=== PATIENT | female | born 1940 | race Caucasian/White ===

== ENCOUNTER 2018-10-07 08:49 | Emergency (ER) | payer MEDICARE, BC, SELFPAY ==
[2018-10-07 08:49] VITALS: BP 135/56; PULSE 66; RESP 16; TEMP 36.9; O2SAT 100; BMI 23.0
[2018-10-07 09:00] VITALS: BP 135/56; PULSE 62
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
[2018-10-07 09:53] VITALS: BP 120/59; PULSE 63; RESP 15; O2SAT 100
[2018-10-07 10:00] VITALS: BP 109/46; PULSE 66; O2SAT 100
[2018-10-07] MEDS: ERYTHROMYCIN OPHTH 1 GM OINT 1 APPLIC EYE-BOTH (10:17)
--- NOTE | 2018-10-07 10:25 | PC.NURSE ---
left message for for ride home
== END 2018-10-07 10:37 | disposition home or self-care (01) ==
PROVIDERS: Emergency Provider Emergency Medicine; PCP Internal Medicine
DX: T24.211A Burn of second degree of right thigh, initial encounter (principal); T24.212A Burn of second degree of left thigh, initial encounter
CPT/HCPCS: 99283

== ENCOUNTER → 2018-11-30 09:13 | Outpatient (CLI) | payer MEDICARE, BC, SELFPAY ==
[2018-11-30 10:36] LABS: Add Manual Diff / Slide Review NO; Basophils Absolute Auto 0 /uL (0-100); Eosinophils Absolute Auto 400 /uL (0-450); Eosinophils Percent Auto 9.3 % (2-4); Hematocrit 41.6 % (36-46); Lymphocytes Absolute Auto 1700 /uL (1100-4500); Mean Corpuscular HGB Conc 33.7 % (30-36); Mean Corpuscular Hemoglobin 31.4 PG (26-34); Mean Corpuscular Volume 93.2 fL (80-100); Monocytes Absolute Auto 500 /uL (0-900); Monocytes Percent Auto 11.8 % (3-14); Neutrophils Absolute Auto 1300 /uL (1500-7000); Neutrophils Percent Auto 33.9 % (50-75); Platelet Count 288 X10^3/uL (150-400); Red Blood Cell Count 4.47 X10^6/uL (4.0-5.2); Red Cell Distribution Width 12.7 % (11.6-14.8); White Blood Cell Count 3.9 X10^3/uL (4.5-11.0)
[2018-11-30 10:54] LABS: BUN Creatinine Ratio 18.8 (6-22); Blood Urea Nitrogen 15 mg/dL (7-17); Calcium 10.5 mg/dL (8.4-10.2); Carbon Dioxide 30 mmol/L (22-32); Chloride 105 mmol/L (98-107); Cholesterol 226 mg/dL (140-199); Estimated Glomerular Filt Rate > 60.0 mL/min (>60); Glucose 88 mg/dL (80-110); HDL Cholesterol 65 mg/dL (40-60); HEMOLYSIS < 15 (0-50); LDL Cholesterol Calculated 147 mg/dL (<100); Sodium 143 mmol/L (137-145); Triglycerides 72 mg/dL (35-150)
[2018-11-30 11:08] LABS: Vitamin D 25 Hydroxy (D3) 38.4 ng/mL (30.0-100.0)
[2018-12-04 13:46] LABS: Parathyroid Hormone Int 58 pg/mL (14-64)
== END ==
PROVIDERS: PCP Internal Medicine; Visit Provider Internal Medicine
DX: M85.80 Other specified disorders of bone density and structure, unspecified site (principal); E78.5 Hyperlipidemia, unspecified; E21.3 Hyperparathyroidism, unspecified; D72.819 Decreased white blood cell count, unspecified
CPT/HCPCS: 36415; 80048; 80061; 82306; 83970; 85025

== ENCOUNTER → 2018-12-04 13:41 | Outpatient (CLI) | payer MEDICARE, BC, SELFPAY | PROVIDERS: PCP Internal Medicine; Visit Provider Internal Medicine | DX: M81.0 Age-related osteoporosis without current pathological fracture (principal); Z78.0 Asymptomatic menopausal state; Z82.62 Family history of osteoporosis | CPT/HCPCS: 77080 ==

== ENCOUNTER → 2019-01-01 16:55 | Outpatient (CLI) | payer MEDICARE, BC, SELFPAY ==
--- NOTE | 2019-01-01 16:58 | DI.MG.S_ITS ---
BILATERAL DIGITAL SCREENING MAMMOGRAM 3D/2D WITH CAD: 01/01/2019 CLINICAL: Routine screening. Comparison is made to exams dated: 04/13/2016 mammogram, 04/08/2015 mammogram - [facility], and 04/04/2012 mammogram - [facility]. The tissue of both breasts is heterogeneously dense. This may lower the sensitivity of mammography. Current study was also evaluated with a Computer Aided Detection (CAD) system. No significant masses, calcifications, or other findings are seen in either breast. There has been no significant interval change. IMPRESSION: NEGATIVE There is no mammographic evidence of malignancy. A 1 year screening mammogram is recommended. NOTE: For mammograms, a report in lay terms will be sent to the patient. Approximately 15% of breast malignancies will not be visualized mammographically. In the management of a palpable breast mass, a negative mammogram must not discourage biopsy of a clinically suspicious lesion. Electronically Signed By: Wong mcdonald/alexus:01/01/2019 18:06:57 letter sent: Normal Exam ACR BI-RADS Category 1: Negative 3341F
== END ==
PROVIDERS: PCP Internal Medicine; Visit Provider Internal Medicine
DX: Z12.31 Encounter for screening mammogram for malignant neoplasm of breast (principal)
CPT/HCPCS: 77063; 77067

== ENCOUNTER 2020-03-04 19:29 | Emergency (ER) | payer MEDICARE, BC, SELFPAY ==
[2020-03-04 19:33] VITALS: BP 134/63; PULSE 68; RESP 16; TEMP 36.2; O2SAT 99
[2020-03-04] MEDS: PROPARACAINE 0.5% OPHTH SOL 1 DROPS EYE-LEFT (20:39)
[2020-03-04] MEDS: FLUORESCEIN 1 MG STRIP EYE-LEFT (20:39)
--- NOTE | 2020-03-04 21:06 | ED.EYEPROB ---
HPI - Eye Problem <DAWSON Bowers - Last Filed: 03/04/20 21:27> General Chief complaint: Eye Problems Stated complaint: lt eye pain, swelling Time Seen by Provider: 03/04/20 20:23 Source: patient Mode of arrival: Ambulatory Limitations: no limitations History of Present Illness HPI Narrative: The patient is a 80-year-old female with history of macular degeneration and cataract in her left eye you presents with a chief complaint of irritation to her left eye for 2 or 3 days. She thinks it started after using mascara. She denies any injury to the eye, was concerned that she got the mass care into it. Denies any acute visual changes, states that her vision is normal if she opens up her eye enough. Denies any haloing of lights. Denies any floaters. Denies any double vision. Denies any pain in the back of her eye. She does not use contact lenses. Her refining engineer is Dr. Alcantara Related Data Home Medications Medication Instructions Recorded Confirmed [probiotic] #0 07/25/17 albuterol sulfate [ProAir 90 mcg IH #0 07/25/17 RespiClick] cholecalciferol (vitamin D3) #0 07/25/17 [Vitamin D3] coenzyme Q10 [Co Q-10] 100 mg PO #0 07/25/17 melatonin #0 08/23/17 Previous Rx's Medication Instructions Recorded amoxicillin-pot clavulanate 875 mg PO BID #14 tab 08/23/17 [Augmentin] acetaminophen-codeine 1 tab PO Q8H PRN #10 tab 10/07/18 [Tylenol-Codeine #3] mafenide acetate 1 applictn TOP BID #56.7 gram 10/07/18 erythromycin 1 applictn EYE-LEFT Q4H 7 Days 03/04/20 #3.5 gram Allergies Allergy/AdvReac Type Severity Reaction Status Date / Time nut - unspecified Allergy Severe swells Verified 10/07/18 09:03 [NUT - UNSPECIFIED] throat Sulfa (Sulfonamide Allergy Intermediate Verified 10/07/18 09:03 Antibiotics) [SULFA (SULFONAMIDE ANTIBIOTICS)] Review of Systems <DAWSON Bowers - Last Filed: 03/04/20 21:27> Review of Systems Narrative: GENERAL: Denies chills, fatigue, malaise, fever, sweats. HEENT: See HPI RESPIRATORY: Denies dyspnea, cough, wheezing, hemoptysis, sputum. CARDIOVASCULAR: Denies chest pain, palpitations, orthopnea, edema, GASTROINTESTINAL: Denies nausea, vomiting, abdominal pain, diarrhea, constipation, melena. : Denies dysuria, frequency, incontinence, hematuria, urinary retention. MUSCULOSKELETAL: denies weakness, joint pain, or bony pain SKIN: Denies rash, skin lesions, or other NEUROLOGIC: Denies weakness, headache, numbness, change in speech, confusion, seizures, incoordination. PSYCHIATRIC: No concerning psychosocial issues. 12 point review of systems is negative except for those stated above Patient History <DAWSON Bowers - Last Filed: 03/04/20 21:27> Social History (Updated 10/07/18 @ 09:32 by Jeanie Callahan DO) marital status: Exam <DAWSON Bowers - Last Filed: 03/04/20 21:27> Narrative Exam Narrative: GENERAL: This is a well-nourished, well-developed patient, no acute distress HEAD: Atraumatic. Normocephalic. No temporal or scalp tenderness. EYES: Pupils equal round and reactive. Extraocular motions intact. No scleral icterus. No pain on EOMs. EOMs intact. Slight purulent drainage noted lateral and medial corners of left eye, slight crusting noted. No visual abnormality right eye. No erythema noted around left eye, slight swelling noted on leg. No abrasion laceration or foreign body noted on fluorescein exam left eye ENT: Nose without bleeding, purulent drainage or septal hematoma. Wearing a mass Airway patent. NECK: Trachea midline. No JVD or lymphadenopathy. Supple, nontender, no meningeal signs. CARDIOVASCULAR: Regular rate and rhythm RESPIRATORY: No cough. No increased respiratory effort. No accessory muscle use. NEURO: AOx3. SKIN: No rash or erythema on visible skin Initial Vital Signs Initial Vital Signs: Vital Signs Temperature 97.2 F L 03/04/20 19:33 Pulse Rate 68 03/04/20 19:33 Respiratory Rate 16 03/04/20 19:33 Blood Pressure 134/63 03/04/20 19:33 Pulse Oximetry 99 03/04/20 19:33 <Sherwin Nichols DO - Last Filed: 03/04/20 21:40> Initial Vital Signs Initial Vital Signs: Vital Signs Temperature 97.2 F L 03/04/20 19:33 Pulse Rate 68 03/04/20 19:33 Respiratory Rate 16 03/04/20 19:33 Blood Pressure 134/63 03/04/20 19:33 Pulse Oximetry 99 03/04/20 19:33 Scores <DAWSON Bowers - Last Filed: 03/04/20 21:27> GCS Marion coma scale eye opening: Spontaneous Xin coma scale verbal response: Orientated Xin coma scale motor response: Obey commands Xin coma scale total score: 15 Course <DAWSON Bowers - Last Filed: 03/04/20 21:27> Orders Ordered: Discontinued Medications Erythromycin (Erythromycin Ophth Oint) 1 applic EYE-LEFT NOW ONE Stop: 03/04/20 21:19 Last Admin: 03/04/20 21:24 Dose: 1 applic Documented by: MARIELA Fluorescein Sodium (Ful-Miriam) 1 mg EYE-LEFT NOW ONE Stop: 03/04/20 20:34 Last Admin: 03/04/20 20:39 Dose: 1 mg Documented by: MARIELA Proparacaine HCl (Parcaine 0.5% Ophth Cailin) 1 drops EYE-LEFT NOW ONE Stop: 03/04/20 20:34 Last Admin: 03/04/20 20:39 Dose: 1 drop Documented by: MARIELA Vital Signs Vital signs: Vital Signs - 8 hr 03/04/20 19:33 Temperature 97.2 F L Pulse Rate 68 Respiratory Rate 16 Blood Pressure 134/63 Pulse Oximetry 99 <Sherwin Nichols DO - Last Filed: 03/04/20 21:40> Orders Ordered: Discontinued Medications Erythromycin (Erythromycin Ophth Oint) 1 applic EYE-LEFT NOW ONE Stop: 03/04/20 21:19 Last Admin: 03/04/20 21:24 Dose: 1 applic Documented by: MARIELA Fluorescein Sodium (Ful-Miriam) 1 mg EYE-LEFT NOW ONE Stop: 03/04/20 20:34 Last Admin: 03/04/20 20:39 Dose: 1 mg Documented by: MARIELA Proparacaine HCl (Parcaine 0.5% Ophth Cailin) 1 drops EYE-LEFT NOW ONE Stop: 03/04/20 20:34 Last Admin: 03/04/20 20:39 Dose: 1 drop Documented by: MARIELA Vital Signs Vital signs: Vital Signs - 8 hr 03/04/20 19:33 Temperature 97.2 F L Pulse Rate 68 Respiratory Rate 16 Blood Pressure 134/63 Pulse Oximetry 99 MDM - Eye Problem <AMANDA BowersP-BC - Last Filed: 03/04/20 21:27> MDM Narrative Medical decision making narrative: The patient is a 80-year-old female who presents with a chief complaint of eye irritation for the past few days. She has no abnormality on fluorescein exam, noted to have some purulent drainage and crusting. Will start on antibiotic, patient chooses appointment instead of drops. Discussed at length very strict return precautions for any acute visual concerns, follow-up with primary care provider or refining engineer. Patient plans on getting rid of her mass care that she used prior to this eye irritation. Patient has no questions or concerns upon discharge and states understanding return precautions as well as follow-up care. Discharge Plan Departure Patient Disposition: Home Clinical Impression: Bacterial conjunctivitis Discharge Date/Time: 03/04/20 21:32 Instructions: DI for Conjunctivitis Activity Restrictions/Additional Instructions: Thank you for trusting us with your care today. I sent a prescription of antibiotic ointment for your eye to [facility] Please follow-up with primary care provider or refining engineer in the next few days Please come back to emergency department for any acute concerns such as changes in vision, etcetera Prescriptions: New erythromycin 5 mg/gram (0.5 %) ointment 1 applictn EYE-LEFT Q4H 7 Days Qty: 3.5 RF: 0 No Action cholecalciferol (vitamin D3) [Vitamin D3] 400 unit tablet,chewable Qty: 0 RF: 0 coenzyme Q10 [Co Q-10] 100 MG capsule 100 mg PO Qty: 0 RF: 0 albuterol sulfate [ProAir RespiClick] 90 MCG aerosol powdr breath activated 90 mcg IH Qty: 0 RF: 0 [probiotic] Qty: 0 RF: 0 melatonin 3 MG tablet Qty: 0 RF: 0 amoxicillin-pot clavulanate [Augmentin] 875 MG/125 MG tablet 875 mg PO BID Qty: 14 RF: 0 acetaminophen-codeine [Tylenol-Codeine #3] 300-30 mg tablet 1 tab PO Q8H PRN (Reason: pain) Qty: 10 RF: 0 mafenide acetate 85 mg/g cream 1 applictn TOP BID Qty: 56.7 RF: 0 Referrals: Ema Daley MD [Primary Care Provider] - <Sherwin Nichols, - Last Filed: 03/04/20 21:40> [facility] Dr Nichols Co-Sign Statement: I was available for consultation during this patient's emergency department visit. This chart is signed by myself for administrative purposes only. I did not have direct contact with this patient during this visit. They were seen independently by the APC.
[2020-03-04] MEDS: ERYTHROMYCIN OPHTH 1 GM OINT 1 APPLIC EYE-LEFT (21:24)
== END 2020-03-04 21:32 | disposition home or self-care (01) ==
PROVIDERS: Emergency Provider Nurse Practitioner Family; PCP Internal Medicine
DX: H10.9 Unspecified conjunctivitis (principal)
CPT/HCPCS: 99282

== ENCOUNTER → 2020-07-01 08:00 | Outpatient (CLI) | payer MEDICARE, BC, SELFPAY ==
[2020-07-01 09:16] LABS: Add Manual Diff / Slide Review NO; Basophils Absolute Auto 0 /uL (0-100); Basophils Percent Auto 1.1 % (0-2); Eosinophils Absolute Auto 300 /uL (0-450); Eosinophils Percent Auto 6.3 % (2-4); Hematocrit 40.2 % (36-46); Hemoglobin 12.9 g/dL (12.0-16.0); Lymphocytes Absolute Auto 1800 /uL (1100-4500); Lymphocytes Percent Auto 43.7 % (25-40); Mean Corpuscular HGB Conc 32.2 % (30-36); Mean Corpuscular Hemoglobin 30.3 PG (26-34); Mean Corpuscular Volume 94.2 fL (80-100); Monocytes Absolute Auto 500 /uL (0-900); Monocytes Percent Auto 11.4 % (3-14); Neutrophils Absolute Auto 1600 /uL (1500-7000); Neutrophils Percent Auto 37.5 % (50-75); Platelet Count 274 X10^3/uL (150-400); Red Blood Cell Count 4.27 X10^6/uL (4.0-5.2); Red Cell Distribution Width 13.1 % (11.6-14.8); White Blood Cell Count 4.2 X10^3/uL (4.5-11.0)
[2020-07-01 09:33] LABS: Alanine Aminotransferase 15 IU/L (<35); Albumin 4.1 g/dL (3.5-5.0); Albumin Globulin Ratio 1.2 (1.0-2.8); Alkaline Phosphatase 86 U/L (38-126); Aspartate Aminotransferase 35 IU/L (14-36); Bilirubin Total 0.3 mg/dL (0.2-1.3); Blood Urea Nitrogen 21 mg/dL (7-17); Calcium 9.9 mg/dL (8.4-10.2); Carbon Dioxide 32 mmol/L (22-32); Chloride 107 mmol/L (98-107); Cholesterol 214 mg/dL (140-199); Estimated Glomerular Filt Rate > 60.0 mL/min (>60); Globulin 3.3 g/dL (1.7-4.1); Glucose 87 mg/dL (80-110); HDL Cholesterol 63 mg/dL (40-60); HEMOLYSIS < 15 (0-50); LDL Cholesterol Calculated 140 mg/dL (<100); Sodium 141 mmol/L (137-145); Total Protein 7.4 g/dL (6.3-8.2); Triglycerides 53 mg/dL (35-150)
[2020-07-01 10:19] LABS: TSH w/ Reflex to FT4 1.66 uIU/mL (0.47-4.68)
== END ==
PROVIDERS: PCP Internal Medicine; Referring Provider Internal Medicine; Visit Provider Internal Medicine
DX: E78.5 Hyperlipidemia, unspecified (principal); E21.3 Hyperparathyroidism, unspecified; R00.2 Palpitations
CPT/HCPCS: 36415; 80053; 80061; 84443; 85025

== ENCOUNTER → 2020-07-08 13:03 | Outpatient (CLI) | payer MEDICARE, BC, SELFPAY ==
--- NOTE | 2020-07-31 07:33 | P.HOLT.S_ITS ---
Obstetrics Specialist Report Referral & Results Date Patient Seen: 07/08/20 Requesting provider: Ema Daley Indication: Palpitations Duration of monitoring (days): 14 Diary information: Therefore patient triggered events and 5 patient diary entries Patient triggered events were associated with (within 45 seconds) sinus rhythm, PVCs, PACs, ventricular bigeminy, and ventricular trigeminy Patient diary events were associated with (within 45 seconds) sinus rhythm, PVCs, PVCs and ventricular bigeminy Data: Minimum heart rate identified was 46 beats per minute at 05:11 on 07/17/2020 Maximum sinus heart rate was 160 beats per minute at 10:02 on 07/14/2020 Maximum overall heart rate was 184 beats per minute at 09:46 on 07/20/2020 Less than 1% of identified beats rather ventricular supraventricular ectopic in origin in this included the 50.2nd run of ventricular trigeminy and a 7.2nd run of ventricular bigeminy There were 11 runs of SVT/atrial tachycardia with the fastest interval being the 10 be run as above at 184 beats per minute and the longest lasting 14.2 seconds at a rate of 103 beats per minute which suggest more atrial tachycardia than true SVT Impression: This study shows very rare very brief runs of SVT in addition to rare PVCs and PACs including short runs of ventricular bigeminy and ventricular bigeminy Based on patient events this seems more likely than not that patient's reported sense of palpitations may well be associated with ventricular ectopic beats Clinical correlation suggested
== END ==
PROVIDERS: PCP Internal Medicine; Referring Provider Internal Medicine; Visit Provider Internal Medicine
DX: R00.2 Palpitations (principal); Z23 Encounter for immunization
CPT/HCPCS: 0011A; 91301; 93246; 93248

== ENCOUNTER → 2020-07-08 16:36 | Outpatient (CLI) | payer MEDICARE, BC, SELFPAY ==
[2020-07-08] MEDS: COVID-19 VACC #1, MRNA(MOD) 100 MCG/0.5 ML VIAL IM (16:40)
== END ==
PROVIDERS: PCP Internal Medicine; Visit Provider Internal Medicine
DX: Z23 Encounter for immunization (principal)
CPT/HCPCS: 0011A; 91301

== ENCOUNTER → 2020-08-06 14:17 | Outpatient (CLI) | payer MEDICARE, BC, SELFPAY ==
[2020-08-06] MEDS: COVID-19 VACC #2, MRNA(MOD) 100 MCG/0.5 ML VIAL IM (14:21)
== END ==
PROVIDERS: PCP Internal Medicine; Visit Provider Internal Medicine
DX: Z23 Encounter for immunization (principal)
CPT/HCPCS: 0012A; 91301

== ENCOUNTER → 2020-11-28 15:54 | Outpatient (CLI) | payer MEDICARE, BC, SELFPAY ==
--- NOTE | 2020-11-28 | DI.MG.S_ITS ---
BILATERAL DIGITAL SCREENING MAMMOGRAM 3D/2D WITH CAD: 11/28/2020 CLINICAL: Routine screening. Comparison is made to exams dated: 01/01/2019 mammogram, 04/13/2016 mammogram, and 04/08/2015 mammogram - [facility]. There are scattered fibroglandular elements in both breasts. Current study was also evaluated with a Computer Aided Detection (CAD) system. There are benign vascular calcifications in the left breast. No significant masses, calcifications, or other findings are seen in either breast. There has been no significant interval change. IMPRESSION: BENIGN There is no mammographic evidence of malignancy. A 1 year screening mammogram is recommended. This exam was interpreted at Station ID: [id number]. NOTE: For mammograms, a report in lay terms will be sent to the patient. Approximately 15% of breast malignancies will not be visualized mammographically. In the management of a palpable breast mass, a negative mammogram must not discourage biopsy of a clinically suspicious lesion. Electronically Signed By: Jefry alonso/alexus:11/30/2020 09:24:01 letter sent: Normal Exam ACR BI-RADS Category 2: Benign Finding(s) 3342F
== END ==
PROVIDERS: PCP Internal Medicine; Referring Provider Internal Medicine; Visit Provider Internal Medicine
DX: Z12.31 Encounter for screening mammogram for malignant neoplasm of breast (principal)
CPT/HCPCS: 77063; 77067

== ENCOUNTER → 2021-10-14 14:05 | Outpatient (CLI) | payer MEDICARE, BC, SELFPAY | PROVIDERS: PCP Internal Medicine; Referring Provider Internal Medicine; Visit Provider Internal Medicine | DX: Z13.820 Encounter for screening for osteoporosis (principal); Z78.0 Asymptomatic menopausal state; M81.0 Age-related osteoporosis without current pathological fracture | CPT/HCPCS: 77080 ==

== ENCOUNTER → 2022-02-08 08:29 | Outpatient (CLI) | payer MEDICARE, BC, SELFPAY ==
--- NOTE | 2022-02-08 | DI.MG.S_ITS ---
BILATERAL DIGITAL SCREENING MAMMOGRAM 3D/2D WITH CAD: 02/08/2022 CLINICAL: Routine screening. Comparison is made to exams dated: 01/01/2019 mammogram, 04/13/2016 mammogram, and 11/28/2020 mammogram - [facility]. There are scattered areas of fibroglandular density in both breasts (category b / 25%-50% glandular tissue). Current study was also evaluated with a Computer Aided Detection (CAD) system. There are benign vascular calcifications in the left breast. No significant masses, calcifications, or other findings are seen in either breast. There has been no significant interval change. IMPRESSION: BENIGN There is no mammographic evidence of malignancy. A 1 year screening mammogram is recommended. Based on the Tyrer Cuzick model (a risk assessment model) the patient's lifetime risk is 1.6% and her 10 year risk is 0.0%. According to the ACR, ACS, and NCCN guidelines, an annual breast MRI exam along with mammogram is recommended if the patient's lifetime risk is 20% or greater. This exam was interpreted at Station ID: [id number]. NOTE: For mammograms, a report in lay terms will be sent to the patient. Approximately 15% of breast malignancies will not be visualized mammographically. In the management of a palpable breast mass, a negative mammogram must not discourage biopsy of a clinically suspicious lesion. Electronically Signed By: Marck oakley/alexus:02/08/2022 09:23:32 letter sent: Normal Exam ACR BI-RADS Category 2: Benign Finding(s) 3342F
== END ==
PROVIDERS: PCP Internal Medicine; Referring Provider Internal Medicine; Visit Provider Internal Medicine
DX: Z12.31 Encounter for screening mammogram for malignant neoplasm of breast (principal)
CPT/HCPCS: 77063; 77067

== ENCOUNTER → 2023-02-10 11:21 | Outpatient (CLI) | payer MEDICARE, BC, SELFPAY ==
--- NOTE | 2023-02-10 | DI.MG.S_ITS ---
BILATERAL DIGITAL SCREENING MAMMOGRAM 3D/2D WITH CAD: 02/10/2023 CLINICAL: Routine screening. Comparison is made to exams dated: 02/08/2022 mammogram, 11/28/2020 mammogram, 01/01/2019 mammogram, and 04/13/2016 mammogram - [facility]. There are scattered areas of fibroglandular density in both breasts (category b / 25%-50% glandular tissue). Current study was also evaluated with a Computer Aided Detection (CAD) system. There are benign vascular calcifications in the left breast. No significant masses, calcifications, or other findings are seen in either breast. There has been no significant interval change. IMPRESSION: BENIGN There is no mammographic evidence of malignancy. A 1 year screening mammogram is recommended. Based on the Tyrer Cuzick model (a risk assessment model) the patient's lifetime risk is 0.8% and her 10 year risk is 0.0%. According to the ACR, ACS, and NCCN guidelines, an annual breast MRI exam along with mammogram is recommended if the patient's lifetime risk is 20% or greater. This exam was interpreted at Station ID: [id number]. NOTE: For mammograms, a report in lay terms will be sent to the patient. Approximately 15% of breast malignancies will not be visualized mammographically. In the management of a palpable breast mass, a negative mammogram must not discourage biopsy of a clinically suspicious lesion. Electronically Signed By: Wong mcdonald/alexus:02/10/2023 16:05:22 letter sent: Normal Exam ACR BI-RADS Category 2: Benign Finding(s) 3342F
== END ==
PROVIDERS: PCP Internal Medicine; Referring Provider Internal Medicine; Visit Provider Internal Medicine
DX: Z12.31 Encounter for screening mammogram for malignant neoplasm of breast (principal)
CPT/HCPCS: 77063; 77067

== ENCOUNTER → 2023-09-27 07:20 | Outpatient (CLI) | payer MEDICARE, BC, SELFPAY ==
[2023-09-27 07:59] LABS: Add Manual Diff / Slide Review NO; Basophils Absolute Auto 0 /uL (0-100); Basophils Percent Auto 0.7 % (0-2); Eosinophils Absolute Auto 400 /uL (0-450); Eosinophils Percent Auto 9.2 % (2-4); Hematocrit 38.9 % (36-46); Hemoglobin 13.1 g/dL (12.0-16.0); Lymphocytes Absolute Auto 2100 /uL (1100-4500); Lymphocytes Percent Auto 48.5 % (25-40); Mean Corpuscular HGB Conc 33.7 % (30-36); Mean Corpuscular Hemoglobin 31.8 PG (26-34); Mean Corpuscular Volume 94.4 fL (80-100); Monocytes Absolute Auto 500 /uL (0-900); Monocytes Percent Auto 12.4 % (3-14); Neutrophils Absolute Auto 1300 /uL (1500-7000); Neutrophils Percent Auto 29.2 % (50-75); Platelet Count 262 X10^3/uL (150-400); Red Blood Cell Count 4.12 X10^6/uL (4.0-5.2); Red Cell Distribution Width 13.9 % (11.6-14.8); White Blood Cell Count 4.4 X10^3/uL (4.5-11.0)
[2023-09-27 08:36] LABS: Alanine Aminotransferase 21 IU/L (<35); Albumin 4.3 g/dL (3.5-5.0); Albumin Globulin Ratio 1.3 (1.0-2.8); Alkaline Phosphatase 87 U/L (38-126); Aspartate Aminotransferase 31 IU/L (14-36); BUN Creatinine Ratio 26.5 (6-22); Bilirubin Total 0.6 mg/dL (0.2-1.3); Blood Urea Nitrogen 18 mg/dL (7-17); Calcium 10.3 mg/dL (8.4-10.2); Carbon Dioxide 33 mmol/L (22-32); Chloride 106 mmol/L (98-107); Estimated Glomerular Filt Rate > 60 mL/min (>60); Globulin 3.3 g/dL (1.7-4.1); Glucose 87 mg/dL (80-110); HEMOLYSIS < 15 (0-50); Potassium 3.7 mmol/L (3.4-5.1); Sodium 141 mmol/L (137-145); Total Protein 7.6 g/dL (6.3-8.2)
[2023-09-27 08:37] LABS: Hemoglobin A1C% w Est Avg Glu 5.5 % (4.0-6.0)
== END ==
LOC: LAB 07:21
PROVIDERS: PCP Family Medicine; Referring Provider Family Medicine; Visit Provider Family Medicine
DX: I95.9 Hypotension, unspecified (principal); R73.9 Hyperglycemia, unspecified; R00.2 Palpitations
CPT/HCPCS: 36415; 80053; 83036; 85025

== ENCOUNTER → 2024-06-08 08:50 | Outpatient (CLI) | payer MEDICARE, BC, SELFPAY ==
[2024-06-08 09:49] LABS: Alanine Aminotransferase 22 IU/L (<35); Albumin Globulin Ratio 1.2 (1.0-2.8); Alkaline Phosphatase 96 U/L (38-126); Aspartate Aminotransferase 30 IU/L (14-36); BUN Creatinine Ratio 23.9 (6-22); Bilirubin Total 0.5 mg/dL (0.2-1.3); Blood Urea Nitrogen 17 mg/dL (7-17); Calcium 10.6 mg/dL (8.4-10.2); Carbon Dioxide 31 mmol/L (22-32); Chloride 104 mmol/L (98-107); Estimated Glomerular Filt Rate > 60 mL/min (>60); Globulin 3.4 g/dL (1.7-4.1); Glucose 95 mg/dL (80-110); HEMOLYSIS < 15 (0-50); Potassium 4.5 mmol/L (3.4-5.1); Sodium 137 mmol/L (137-145); Total Protein 7.4 g/dL (6.3-8.2)
== END ==
LOC: LAB 08:51
PROVIDERS: PCP Family Medicine; Referring Provider Family Medicine; Visit Provider Family Medicine
DX: M81.0 Age-related osteoporosis without current pathological fracture (principal)
CPT/HCPCS: 36415; 80053; 82523

== ENCOUNTER → 2024-06-19 10:20 | Outpatient (CLI) | payer MEDICARE, BC, SELFPAY ==
--- NOTE | 2024-06-19 10:22 | DI.MG.S_ITS ---
BILATERAL DIGITAL SCREENING MAMMOGRAM 3D/2D WITH CAD: 06/19/2024 CLINICAL: Routine screening. Comparison is made to exams dated: 02/10/2023 mammogram, 02/08/2022 mammogram, and 11/28/2020 mammogram - [facility]. There are scattered areas of fibroglandular density (category b / 25%-50% glandular tissue). Current study was also evaluated with a Computer Aided Detection (CAD) system. There are benign vascular calcifications in the left breast. No significant masses, calcifications, or other findings are seen in either breast. There has been no significant interval change. IMPRESSION: BENIGN There is no mammographic evidence of malignancy. A 1 year screening mammogram is recommended. Based on the Tyrer Cuzick model (a risk assessment model) the patient's lifetime risk is 0.6% and her 10 year risk is 0.0%. According to the ACR, ACS, and NCCN guidelines, an annual breast MRI exam along with mammogram is recommended if the patient's lifetime risk is 20% or greater. This exam was interpreted at Station ID: [id number]. NOTE: For mammograms, a report in lay terms will be sent to the patient. Approximately 15% of breast malignancies will not be visualized mammographically. In the management of a palpable breast mass, a negative mammogram must not discourage biopsy of a clinically suspicious lesion. Electronically Signed By: Vikki ferraro/alexus:06/19/2024 16:16:26 letter sent: Normal Exam ACR BI-RADS Category 2: Benign
--- NOTE | 2024-06-19 10:22 | DI.RAD.S_ITS ---
PROCEDURE: XR DEXA AXIAL SKELETON INDICATIONS: OSTEOPOROSIS SCREENING/ROUTINE SCREENING [facility]20. FINDINGS: Lumbar Spine: L1-L4. Bone mineral density 1.073 g/cm2, T score 0.2, there is significant interval increase in bone mineral density, 8.1 %. Left Hip: Bone mineral density 0.631 g/cm2, T score -2.6. Left Femoral Neck: Bone mineral density 0.515 g/cm2, T score -3.0. Fracture Risk Calculation (when applicable): 10-year fracture risk of a major osteoporotic fracture 22 percent and of a hip fracture 9.2 percent. (T score greater or equal to -1.0 to: NORMAL) (T score from -1.1 to -2.4: OSTEOPENIA) (T score less than or equal to -2.5: OSTEOPOROSIS) IMPRESSION: Osteoporosis. There is significant interval increase in bone mineral density at the lumbar spine. Follow-up guidelines as follows: Osteoporosis: Consider a repeat DEXA and Vertebral Fracture Assessment (VFA) exam in 2 years or sooner if medically necessary, to reassess this patient's status. Osteopenia: Consider a repeat DEXA in 2-3 years to reassess this patient's status, or if there is a new clinical indication. Normal: Consider a repeat DEXA in 5 years or sooner, or if there is a new clinical indication. All treatment decisions require clinical judgment and consideration of individual patient factors, including patient preferences, comorbidities, previous drug use, risk factors not captured in the FRAX model (e.g., frailty, falls, vitamin D deficiency, increased bone turnover, interval significant decline in bone density ) and possible under- or over-estimation of fracture risk by FRAX. In addition, the NOF Guide recommends that FDA-approved medical therapies be considered in postmenopausal women and men age >= 50 years with a: * Hip or vertebral (clinical or morphometric) fracture * T-score of <=-2.5 at the spine or hip * Ten-year fracture probability by FRAX of >= 3% for hip fracture or >=20% for major osteoporotic fracture. People with diagnosed cases of osteoporosis or at high risk for fracture should have regular bone mineral density tests. For patients eligible for Medicare, routine testing is allowed once every 2 years. The testing frequency can be increased to one year for patients who have rapidly progressing disease, those who are receiving or discontinuing medical therapy to restore bone mass, or have additional risk factors. Dictated by: Jefry Holland M.D. on 06/19/2024 at 12:30 Approved by: Jefry Holland M.D. on 06/19/2024 at 13:07
== END ==
PROVIDERS: PCP Family Medicine; Referring Provider Family Medicine; Visit Provider Family Medicine
DX: Z12.31 Encounter for screening mammogram for malignant neoplasm of breast (principal); M81.0 Age-related osteoporosis without current pathological fracture; M85.89 Other specified disorders of bone density and structure, multiple sites; R92.1 Mammographic calcification found on diagnostic imaging of breast
CPT/HCPCS: 77063; 77067; 77080

== ENCOUNTER → 2024-07-24 11:38 | Outpatient (CLI) | payer MEDICARE, BC, SELFPAY ==
[2024-07-25 08:09] LABS: Calcium 10.4 mg/dL (8.7-10.3); Parathyroid Hormone, Intact 53 pg/mL (15-65)
== END ==
PROVIDERS: PCP Family Medicine; Referring Provider Family Medicine; Visit Provider Family Medicine
DX: M81.0 Age-related osteoporosis without current pathological fracture (principal)
CPT/HCPCS: 36415; 82310; 82397; 83970

== ENCOUNTER → 2024-10-22 14:09 | Outpatient (CLI) | payer MEDICARE, BC, SELFPAY ==
[2024-10-28 13:09] LABS: Creatinine, Urine 70.1 mg/dL (Not Estab.); N-telo/Creat. Ratio 47 (0-89); N-telopeptide 292 nmol BCE (Not Estab.)
== END ==
PROVIDERS: PCP Family Medicine; Referring Provider Family Medicine; Visit Provider Family Medicine
DX: M81.0 Age-related osteoporosis without current pathological fracture (principal)
CPT/HCPCS: 82523